=== PATIENT | female | born 1980 | race Two or more races ===

== ENCOUNTER 2018-05-05 09:05 | Emergency (ER) | payer MEDICAID ==
[~2018-05-05] VITALS: Ht 157.5 cm; Wt 75.7 kg
[~2018-05-05 09:05] MED LIST: ACETAMINOPHEN-1 EAC1 PO; BACTRIM-DS1 EA PO; KEFLEX500 MG PO; NKM
[2018-05-05 09:08] VITALS: BP 117/54
[2018-05-05] MEDS ORDERED: IBUPROFEN600 MG ORAL (09:33)
[2018-05-05] MEDS ORDERED: TAMIFLU75 MG ORAL (09:33)
--- NOTE | 2018-05-05 09:43 | Emergency Room Report ---
History of Present Illness General Chief Complaint: Flu Like Symptoms Source: Patient Present Illness HPI Patient presents with son With similar complaints of cough congestion sore throat and body aches Patient reported episode of vomiting to triage Denies any rash Patient had a fever upon arrival Denies any neck pain or photophobia Patient reports that the older son had similar symptoms and soon after the whole family became ill Allergies: Coded Allergies: No Known Allergies (Unverified , 04/06/13) Patient History Past Medical History: see triage record Pertinent Family History: none Last Menstrual Period: 02/2018 Reviewed Nursing Documentation: PMH: Agreed; PSxH: Agreed Nursing Documentation-PMH Past Medical History: No Stated History Hx Cardiac Problems: No Hx Hypertension: No Hx Pacemaker: No Hx Asthma: No Hx COPD: No Hx Diabetes: No Hx Cancer: No Hx Gastrointestinal Problems: No Hx Dialysis: No Hx Neurological Problems: No Hx Cerebrovascular Accident: No Hx Seizures: No Review of Systems All Other Systems: negative except mentioned in HPI Physical Exam Vital Signs Date Time Temp Pulse Resp B/P (MAP) Pulse Ox O2 Delivery O2 Flow Rate FiO2 05/05/18 09:08 102.7 118 20 117/54 96 Room Air Sp02 EP Interpretation: reviewed, normal General Appearance: well appearing, no apparent distress Head: normocephalic, atraumatic Eyes: bilateral eye PERRL, bilateral eye EOMI ENT: hearing grossly normal, TMs + canals normal, uvula midline, pharyngeal erythema - No obvious pustules airway patent Neck: full range of motion, supple, no meningismus, no bony tend Respiratory: lungs clear, normal breath sounds, no respiratory distress Cardiovascular #1: normal peripheral pulses, regular rate, rhythm, no edema Gastrointestinal: normal bowel sounds, non tender, soft, non-distended Musculoskeletal: normal inspection Neurologic: oriented x3, responsive, client services representative III-XII nml as tested, motor strength/ tone normal, sensory intact Psychiatric: mood/affect normal Skin: normal color, no rash, warm/dry, palpation normal Lymphatic: normal inspection, no adenopathy Medical Decision Making Diagnostic Impression: Primary Impression: Influenza-like symptoms ER Course Patient's clinical history and exam is consistent with flulike symptoms other differentials such as meningitis, bacterial infection considered Given the patient's early presentation she is a candidate for Tamiflu Patient and her son placed on medication require close outpatient follow-up Last Vital Signs Date Time Temp Pulse Resp B/P (MAP) Pulse Ox O2 Delivery O2 Flow Rate FiO2 05/05/18 09:08 118 20 Room Air 05/05/18 09:08 102.7 117/54 96 Status: improved Disposition: HOME, SELF-CARE Condition: Improved Scripts Ibuprofen* (MOTRIN*) 600 Mg Tablet 600 MG ORAL Q8H PRN for For Pain, #20 TAB 0 Refills Prov: Mumtaz Zepeda DO 05/05/18 Oseltamivir Phosphate (Tamiflu) 75 Mg Capsule 75 MG ORAL TWICE A DAY for 5 Days, CAP Prov: Mumtaz Zepeda DO 05/05/18 Referrals: [facility]ERR[facility] (PCP) Patient Instructions: Influenza, Adult, [id number] Additional Instructions: Patient is provided with the discharge instructions notified to follow up with primary doctor in the next 2-3 days otherwise return to the er with any worsening symptoms. Please note that this report is being documented using DRAGON technology. This can lead to erroneous entry secondary to incorrect interpretation by the dictating instrument. Mumtaz Zepeda DO May 05, 2018 09:43
[2018-05-05 09:45] VITALS: BP 118/69
== END 2018-05-05 09:46 | disposition home or self-care (01) ==
LOC: EMR 09:32
DX: R50.9 Fever, unspecified (principal); R05 Cough; R07.0 Pain in throat
CPT/HCPCS: 99282